=== PATIENT | male | born 1965 | race Caucasian/White ===

== ENCOUNTER 2023-12-23 13:20 | Outpatient (CLI) | payer OTHER, SELFPAY ==
--- NOTE | 2023-12-23 13:45 | CRLHL7_ITS ---
For Patients: As a result of the Century Cures Act, medical imaging exams and procedure reports are released immediately into your electronic medical record. You may view this report before your referring provider. If you have questions, please contact your health care provider. Indication: Lumbosacral radiculopathy Technique: Multiplanar, multisequence, MRI of the lumbar spine, obtained without contrast. Comparison: No relevant comparison studies available at this institution. Findings: Preserved lumbar lordosis. No significant spondylolisthesis. No acute osseus abnormality. Scattered degenerative Schmorl`s nodes. Modic type 2 opposing endplate changes anteriorly at L1-2, as well as at the L3 and the inferior endplate. Otherwise unremarkable bone marrow signal. Conus medullaris terminates at L1. No suspicious findings identified in the paraspinal soft tissues. The included SI joints are unremarkable. T12-L1: No significant neural foraminal or spinal canal stenosis. L1-L2: Mild diffuse disc bulge. No significant neural foraminal or spinal canal stenosis. L2-L3: Mild diffuse disc bulge, mild facet arthropathy. No right, mild left neural foraminal narrowing. No spinal canal stenosis. L3-L4: Mild diffuse disc bulge, mild facet arthropathy. No right, mild left neural foraminal narrowing. No spinal canal stenosis. L4-L5: Mild facet arthropathy. No significant neural foraminal or spinal canal stenosis. L5-S1: Mild diffuse disc bulge and osteophytic endplate ridging. Mild facet arthropathy. Mild-moderate right, moderate left neural foraminal stenosis. No spinal canal stenosis. Impression: 1. Scattered spondylosis with Modic type 2 end-plate changes as detailed. 2. At L5-S1, moderate left neural foraminal stenosis and mild-moderate right neural foraminal narrowing. 3. Additional mild bilateral neural foraminal narrowing at L2-3 and L3-4. 4. No significant spinal canal stenosis. Dictated by Magdalene Maier MD @ 12/23/2023 2:40:19 PM (Electronically Signed)
== END 2023-12-23 13:21 | disposition home or self-care (01) ==
LOC: MRI 13:22
PROVIDERS: PCP Family Medicine; Visit Provider Family Medicine
DX: M54.17 Radiculopathy, lumbosacral region (principal); M48.07 Spinal stenosis, lumbosacral region; M51.26 Other intervertebral disc displacement, lumbar region
CPT/HCPCS: 72148

== ENCOUNTER 2024-03-20 10:28 | Outpatient (CLI) | payer OTHER, SELFPAY | END 2024-03-20 10:29 | disposition home or self-care (01) | LOC: INJ CL 10:29 | PROVIDERS: PCP Family Medicine; Visit Provider Family Medicine | DX: M51.36 Other intervertebral disc degeneration, lumbar region (principal); M54.16 Radiculopathy, lumbar region | CPT/HCPCS: 62323; J0702; Q9966 ==

== ENCOUNTER 2024-08-14 08:43 | Outpatient (CLI) | payer OTHER, SELFPAY | END 2024-08-14 08:44 | disposition home or self-care (01) | LOC: INJ CL 08:43 | PROVIDERS: PCP Family Medicine; Visit Provider Family Medicine | DX: M54.16 Radiculopathy, lumbar region (principal); M51.36 Other intervertebral disc degeneration, lumbar region | CPT/HCPCS: 62323; J0702; Q9966 ==

== ENCOUNTER 2025-06-14 10:14 | Outpatient (CLI) | payer OTHER, SELFPAY | END 2025-06-14 10:15 | disposition home or self-care (01) | LOC: INJ CL 10:15 | PROVIDERS: PCP Family Medicine; Visit Provider Family Medicine | DX: M25.551 Pain in right hip (principal); M16.11 Unilateral primary osteoarthritis, right hip | CPT/HCPCS: 20610; 77002; J0702; Q9966 ==